=== PATIENT | female | born 1960 | race Caucasian/White ===

== ENCOUNTER 2019-07-01 17:51 | Emergency (ER) | payer MEDICARE, MEDICAID ==
[~2019-07-01] VITALS: Ht 157.5 cm; Wt 98.6 kg
[2019-07-01 19:04] VITALS: BP 130/80
== END 2019-07-01 19:30 | disposition home or self-care (01) ==
LOC: EMS 17:56
DX: J06.9 Acute upper respiratory infection, unspecified (principal); F17.210 Nicotine dependence, cigarettes, uncomplicated; Z88.8 Allergy status to other drugs, medicaments and biological substances

== ENCOUNTER 2020-12-02 22:13 | Emergency (ER) | payer OTHER, MEDICAID ==
[~2020-12-02] VITALS: Ht 162.6 cm; Wt 75.0 kg
[~2020-12-02 22:13] MED LIST: DIVA-112 PO; OLAN7.5T9 PO
[2020-12-02] MEDS ORDERED: HALO5TAB2 PO (22:28)
[2020-12-03] MEDS ORDERED: LORazepam 1 MG TABLET PO ONE (00:30)
[2020-12-03 01:15] VITALS: BP 137/70
== END 2020-12-03 01:23 | disposition home or self-care (01) ==
LOC: EMS 22:13
DX: F41.9 Anxiety disorder, unspecified (principal); F17.210 Nicotine dependence, cigarettes, uncomplicated
CPT/HCPCS: 99283